=== PATIENT | female | born 1975 | race Caucasian/White ===

== ENCOUNTER 2018-08-24 00:02 | Emergency (ER) | payer BC ==
[~2018-08-24 00:02] MED LIST: CEP500 PO; LOR5 PO; NO RTN MEDS
[2018-08-24] MEDS ORDERED: DIPHTH/TETANUS/ACEL. PERTUSSIS IM ONLY ONE (00:10)
[2018-08-24] MEDS ORDERED: AMOX-362 PO (00:17)
[2018-08-24] MEDS ORDERED: MILK87.5 PO (00:17)
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
[2018-08-24 00:58] VITALS: BP 115/81
== END 2018-08-24 00:58 | disposition home or self-care (01) ==
LOC: ER 00:37
DX: S51.011A Laceration without foreign body of right elbow, initial encounter (principal)
CPT/HCPCS: 90471; 90715; 99283